=== PATIENT | male | born 1975 | race African-American/Black ===

== ENCOUNTER 2017-01-15 09:35 | Outpatient (CLI) | payer OTHER | END 2017-01-15 09:36 | disposition home or self-care (01) | DX: R07.89 Other chest pain (principal) | CPT/HCPCS: A0425; A0427 ==

== ENCOUNTER 2017-01-15 09:55 | Observation (INO) | payer OTHER ==
[2017-01-15] MEDS ORDERED: NITROGLYCERIN SL 0.4 MG TABLET SL STA (10:00)
[2017-01-15] MEDS ORDERED: NITROGLYCERIN SL 0.4 MG TABLET SL ONE (10:14)
[2017-01-15] MEDS ORDERED: NITROGLYCERIN 2% PASTE TOP STA (11:00)
[2017-01-15] MEDS ORDERED: NITROGLYCERIN 2% PASTE TOP ONE (11:03)
[2017-01-15] MEDS ORDERED: SODIUM CHLORIDE FLUSH 0.9% 10 ML SYRINGE IVP PRN (12:37)
[2017-01-15] MEDS ORDERED: ONDANSETRON ODT 4 MG TABLET TL PRN (12:37)
[2017-01-15] MEDS ORDERED: IBUPROFEN 600 MG TABLET PO PRN (12:37)
[2017-01-15] MEDS ORDERED: ASPIRIN CHEW 81 MG TABLET PO ONE (12:37)
[2017-01-15] MEDS ORDERED: NITROGLYCERIN SL 0.4 MG TABLET SL PRN (12:37)
[2017-01-15] MEDS ORDERED: guaiFENesin/DEXTROMETHORPHAN 10 ML UDC PO PRN (13:15)
[2017-01-15] MEDS: HYDROcod/ACETAM 5/325 MG TABLET PO PRN (14:22)
[2017-01-15] MEDS: SODIUM CHLORIDE FLUSH 0.9% 10 ML SYRINGE IVP SCH ×2 (14:22→16:18)
[2017-01-15] MEDS ORDERED: LABETALOL 20 MG/4 ML SYRINGE IVP PRN (15:23)
[2017-01-15] MEDS: MORPHINE 2 MG/ML SYRINGE IVP PRN ×2 (16:19→23:54)
[2017-01-15] MEDS ORDERED: SODIUM CHLORIDE 0.45% 1,000 ML IV SCH (17:00)
[2017-01-15] MEDS: PANTOPRAZOLE 40 MG TABLET PO SCH (18:39)
[2017-01-16] MEDS: MORPHINE 2 MG/ML SYRINGE IVP PRN (04:11)
[2017-01-16] MEDS: PANTOPRAZOLE 40 MG TABLET PO SCH (06:03)
[2017-01-16] MEDS: SODIUM CHLORIDE FLUSH 0.9% 10 ML SYRINGE IVP SCH (06:03)
[2017-01-16] MEDS: HYDROcod/ACETAM 5/325 MG TABLET PO PRN (08:24)
[2017-01-16] MEDS ORDERED: POLYETHYLENE GLYCOL 3350 17 GM PACKET PO SCH (09:00)
== END 2017-01-16 11:02 | disposition home or self-care (01) ==
DX: R07.9 Chest pain, unspecified (principal); I10 Essential (primary) hypertension; Z82.49 Family history of ischemic heart disease and other diseases of the circulatory system; M54.2 Cervicalgia; M54.9 Dorsalgia, unspecified; R05 Cough; J34.89 Other specified disorders of nose and nasal sinuses
CPT/HCPCS: 36415; 71010; 80053; 80306; 82465; 83690; 83880; 84484; 85025; 85379; 93005; 93010; 93306; 96374; 96376; 99217; 99218; 99284; A9270